=== PATIENT | female | born 1950 | race Caucasian/White ===

== ENCOUNTER 2023-10-12 10:10 | Emergency (ER) | payer BC ==
[~2023-10-12] VITALS: Ht 154.9 cm; Wt 59.0 kg
--- NOTE | 2023-10-12 10:22 | NUR ---
PT IS IN ROOM #2A. DR DYER EVALUATED THE PT.
--- NOTE | 2023-10-12 11:20 | NUR ---
PT WAS D/C'd TO HOME. D/C INSTRUCTIONS GIVEN TO THE PT BY DR DYER.
[2023-10-12 11:21] VITALS: BP 132/91; TEMP 98.3; O2SAT 97
== END 2023-10-12 12:24 | disposition home or self-care (01) ==
LOC: ER 10:10
DX: L97.919 Non-pressure chronic ulcer of unspecified part of right lower leg with unspecified severity (principal); Z88.1 Allergy status to other antibiotic agents
CPT/HCPCS: A4606; A4663

== ENCOUNTER 2023-10-15 17:56 | Emergency (ER) | payer BC ==
[~2023-10-15] VITALS: Ht 154.9 cm; Wt 59.0 kg
[2023-10-15] MEDS ORDERED: FURO20TA4 PO (18:29)
[2023-10-15] MEDS ORDERED: HYDR-3972 PO (18:29)
[2023-10-15] MEDS ORDERED: DULO60CA64 PO (18:42)
[2023-10-15] MEDS ORDERED: GABA300T25 PO (18:42)
[2023-10-15] MEDS ORDERED: PANT40TA49 PO (18:42)
--- NOTE | 2023-10-15 18:44 | NUR ---
EXTERNAL FUNCTION REVIWED WITH PT FOR MED RECON
--- NOTE | 2023-10-15 18:59 | NUR ---
BIBF after profused bleeding to RLE. Per pt blood soaked through dressings and was reinforced ny fire. Dressing removed to reveal bleeding stopped. Dr Peña made aware pt wanted to take home [place] and Advil and request was granted by Dr Peña.
--- NOTE | 2023-10-15 19:05 | NUR ---
Report given to CHRISTINA Becker
[2023-10-15 19:16] LABS: BASOPHILS # (AUTO) 0.1 K/UL (0.0-0.2); BASOPHILS % (AUTO) 1.4 % (0.0-2.0); EOSINOPHILS # (AUTO) 0.1 K/uL (0.0-0.7); EOSINOPHILS % (AUTO) 1.7 % (0.0-7.0); HEMATOCRIT 31.4 % (31.2-41.9); LYMPHOCYTES # (AUTO) 1.7 K/uL (0.8-4.8); MEAN CORPUSCULAR HEMOGLOBIN 27.4 uug (24.7-32.8); MEAN CORPUSCULAR HGB CONC 32 g/dL (32.3-35.6); MEAN CORPUSCULAR VOLUME 86.4 fL (75.5-95.3); MONOCYTES # (AUTO) 1.2 K/uL (0.1-1.30); NEUTROPHILS # (AUTO) 4.9 K/uL (1.8-8.9); NEUTROPHILS % (AUTO) 60.9 % (38.5-71.5); PLATELET COUNT (AUTO) 271 K/uL (179-408); RED BLOOD CELL COUNT(AUTO) 3.64 MIL/uL (3.63-4.92); RED CELL DISTRIBUTION WIDTH 22.6 % (12.3-17.7)
[2023-10-15 19:27] LABS: CALCIUM 9.4 mg/dL (8.5-10.1); CARBON DIOXIDE 25 mmol/L (21-32); CHLORIDE 102 mmol/L (98-107); CREATININE 1.2 mg/dL (0.6-1.3); GLUCOSE 88 mg/dL (74-106); POTASSIUM 4.1 mmol/L (3.5-5.1); SODIUM SERUM 140 mmol/L (136-145); UREA NITROGEN, BLOOD 22 mg/dL (7-18)
[2023-10-15 19:33] LABS: ALANINE AMINOTRANSFERASE 21 U/L (14-59); ALBUMIN 3.3 g/dL (3.4-5.0); ALKALINE PHOSPHATASE 313 U/L (50-136); ASPARTATE AMINOTRANSFERASE 26 U/L (15-37); BILIRUBIN,TOTAL 0.5 mg/dL (0.2-1.0); TOTAL PROTEIN, SERUM 6.9 g/dL (6.4-8.2)
--- NOTE | 2023-10-15 20:00 | NUR ---
Patient discharged to home in stable condition. Written and verbal after care instructions given. Patient verbalizes understanding of instructions. Stressed follow up or return to ER for worsening s/s. Pt out of ER via wheelchair, no acute signs of distress, VSS, all belongings taken, IV site discontinued, assisted pt on transfer to car, no falls noted.
[2023-10-15 20:05] LABS: LYMPHOCYTES % (MANUAL) 20 % (20-40); MONOCYTES % (MANUAL) 15 % (2-10); NEUTROPHILS % (MANUAL) 65 % (42-75); PLATELET ESTIMATE ADEQUATE
[2023-10-15 20:06] LABS: ANISOCYTOSIS 2+; HYPOCHROMASIA 1+; TEAR DROP CELLS 1+
[2023-10-15 20:20] VITALS: BP 134/93; O2SAT 94
== END 2023-10-15 20:20 | disposition home or self-care (01) ==
LOC: ER 17:57
DX: L76.22 Postprocedural hemorrhage of skin and subcutaneous tissue following other procedure (principal); Z79.891 Long term (current) use of opiate analgesic; Z79.899 Other long term (current) drug therapy; Z88.1 Allergy status to other antibiotic agents
CPT/HCPCS: 36415; 70030-TC; 85025; 85610; 85730; A4606; A4663